=== PATIENT | female | born 1990 | race Caucasian/White ===

== ENCOUNTER 2017-11-18 20:09 | Inpatient (IN) | payer OTHER ==
[2017-11-18 20:53] LABS: ADD UMIC YES; UR ASCORBIC ACID 40 mg/dL (NEGATIVE); UR BACTERIA MANY /HPF (NONE SEEN); UR BILIRUBIN (Dip) NEGATIVE (NEGATIVE); UR BLOOD (Dip) 3+ mg/dL (NEGATIVE); UR CLARITY CLOUDY (CLEAR); UR COLOR AMBER (YELLOW); UR GLUCOSE (Dip) NEGATIVE (NEGATIVE); UR KETONES (Dip) NEGATIVE (NEGATIVE); UR LEUKOCYTE ESTERASE (Dip) 2+ Leu/ul (NEGATIVE); UR MUCUS MANY /HPF (NONE SEEN); UR NITRITE (Dip) POSITIVE (NEGATIVE); UR RBC 4 /HPF (0-5); UR SPECIFIC GRAVITY (Dip) 1.027 (1.003-1.030); UR SQUAMOUS EPITHELIAL CELL MANY /HPF (FEW); UR TOTAL PROTEIN (Dip) 1+ mg/dl (NEGATIVE); UR UROBILINOGEN (Dip) 2+ mg/dL (NEGATIVE); UR WBC 39 /HPF (0-5)
[2017-11-18] MEDS ORDERED: CEFTRIAXONE 1 GM INJ IM (22:00)
[2017-11-18 23:20] LABS: ADD MAN DIFF? NO
[2017-11-18] MEDS: SOD CHLORIDE 0.9% 1,000 ML IV (23:28)
[2017-11-18] MEDS: CEFTRIAXONE 1 GM/50 ML (PMX) 50 ML IVPB (23:29)
[2017-11-18 23:30] LABS: WHITE BLOOD COUNT 11.2 10^3/ul (4.8-10.8)
[2017-11-18 23:30] LABS: BASOPHILS % 0.4 % (0.0-2.0); EOSINOPHILS % 0.2 % (0.0-7.0); HEMATOCRIT 38.1 % (37.0-47.0); HEMOGLOBIN 12.5 g/dl (12.0-16.0); LYMPHOCYTES # 2.4 10^3/ul (0.8-2.9); LYMPHOCYTES % 21.6 % (15.0-51.0); MEAN CORPUSCULAR HGB CONC 32.8 g/dl (32.0-37.0); MEAN CORPUSCULAR VOLUME 85.2 fl (82.0-101.0); MEAN PLATELET VOLUME 10.3 fl (7.4-10.4); MONOCYTE # 0.7 10^3/ul (0.3-0.9); MONOCYTES % 6.6 % (0.0-11.0); NEUTROPHIL # 7.9 10^3/ul (1.6-7.5); NEUTROPHILS % 70.7 % (39.0-77.0); PLATELET COUNT 322 10^3/UL (140-415); RED BLOOD COUNT 4.47 10^6/ul (4.20-5.40); RED CELL DISTRIBUTION WIDTH 14.4 % (11.5-14.5)
[2017-11-18 23:49] LABS: PROTIME 12.2 Sec (11.9-14.9)
[2017-11-18 23:50] LABS: PARTIAL THROMBOPLASTIN TIME 33.1 Sec (23.0-35.0)
[2017-11-19 00:18] LABS: HEPATITIS B SURFACE ANTIGEN NEGATIVE (NEGATIVE)
[2017-11-19] MEDS: HYDROCODONE/APAP (7.5/325) TAB PO (02:46)
[2017-11-19] MEDS ORDERED: CEFAZOLIN 2 GM/50 ML (PMX) 50 ML IVPB (05:42)
[2017-11-19] MEDS ORDERED: CITRIC ACID/NA CITRATE 30 ML CUP (05:42)
[2017-11-19] MEDS ORDERED: ONDANSETRON 4 MG INJ (05:43)
[2017-11-19] MEDS ORDERED: morphine SULFATE/PF (10 MG/10 ML) INJ (05:44)
[2017-11-19] MEDS ORDERED: METOCLOPRAMIDE 10 MG INJ (05:44)
[2017-11-19] MEDS ORDERED: OXYTOCIN 10 UNIT INJ (05:44)
[2017-11-19] MEDS ORDERED: PHENYLephrine (100 MCG/ML) 5ML SYG (05:44)
[2017-11-19] MEDS ORDERED: FENTAnyl 50 MCG/ML VIAL (05:44)
[2017-11-19] MEDS ORDERED: BUPIVACAINE 0.75%/DEXT (SPINAL) 2 ML INJ (05:44)
[2017-11-19] MEDS ORDERED: CEFAZOLIN 2 GM/50 ML (PMX) 50 ML IV (06:00)
[2017-11-19] MEDS: CITRIC ACID/NA CITRATE 30 ML CUP PO (06:00)
[2017-11-19] MEDS ORDERED: HYDROmorphONE 1 MG/5 ML IV SYRINGE IV ×3 (08:00)
[2017-11-19] MEDS ORDERED: DIPHENHYDRAMINE 50 MG INJ IV ×2 (08:00)
[2017-11-19] MEDS ORDERED: LABETALOL HCL 20MG INJ IV (08:00)
[2017-11-19] MEDS ORDERED: ALBUTEROL 0.083% (NEB) 2.5 MG/3 ML AMP HHN (08:00)
[2017-11-19] MEDS ORDERED: morphine 2 MG INJ IV ×2 (08:00)
[2017-11-19] MEDS ORDERED: MEPERIDINE 25 MG INJ IV (08:00)
[2017-11-19] MEDS ORDERED: MIDAZOLAM 1 MG/ML 2 ML INJ IV (08:00)
[2017-11-19] MEDS ORDERED: NALOXONE (0.4 MG/ML) INJ IV (08:00)
[2017-11-19] MEDS ORDERED: IPRATROPIUM (NEB) 0.5 MG/2.5 ML AMP HHN (08:00)
[2017-11-19] MEDS ORDERED: FENTAnyl 50 MCG/ML VIAL IV ×3 (08:00)
[2017-11-19] MEDS ORDERED: OXYCODONE/ACETAMINOPHEN (5/325) TAB PO ×3 (08:00→08:30)
[2017-11-19] MEDS ORDERED: EPHEDrine SULFATE 50 MG/5 ML SYG IV (08:00)
[2017-11-19] MEDS ORDERED: ONDANSETRON 4 MG INJ IV (08:00)
[2017-11-19] MEDS ORDERED: TRIMETHOBENZAMIDE 100 MG/ML VIAL IM ×2 (08:00)
[2017-11-19] MEDS ORDERED: KETOROLAC 30 MG INJ IV (08:00)
[2017-11-19] MEDS ORDERED: OXYTOCIN 30 UNITS/LR 500 ML IV ×2 (08:00→08:30)
[2017-11-19] MEDS ORDERED: NALBUPHINE HCL (10 MG/1 ML) INJ IV (08:00)
[2017-11-19] MEDS ORDERED: hydrALAzine 20 MG INJ IV (08:00)
[2017-11-19] MEDS: DEXTROSE 5%-LR 1,000 ML IV ×2 (08:04→16:04)
[2017-11-19] MEDS: OXYTOCIN 30 UNITS/LR 500 ML IV (08:04)
[2017-11-19] MEDS ORDERED: MISOPROSTOL 200 MCG TAB PR (08:30)
[2017-11-19] MEDS ORDERED: CARBOPROST 250 MCG INJ IM (08:30)
[2017-11-19] MEDS ORDERED: LANOLIN 7 GM TUBE TOP (08:30)
[2017-11-19] MEDS: OXYCODONE/ACETAMINOPHEN (5/325) TAB PO ×3 (08:30→23:47)
[2017-11-19] MEDS ORDERED: METHYLERGONOVINE 0.2 MG TAB PO (08:30)
[2017-11-19] MEDS ORDERED: METHYLERGONOVINE 0.2 MG INJ IM (08:30)
[2017-11-19] MEDS: OXYTOCIN 30 UNITS/LR 500 ML IVPB (08:37)
[2017-11-19] MEDS: SENNA/DOCUSATE NA (8.6MG/50MG) TAB PO ×2 (09:00→21:35)
[2017-11-19] MEDS: FERROUS SULFATE (EC) 325 MG TAB PO (09:00)
[2017-11-19] MEDS ORDERED: PRENATAL VITAMIN PO (09:00)
[2017-11-19] MEDS: ONDANSETRON 4 MG INJ IV ×2 (11:19→11:20)
[2017-11-19] MEDS ORDERED: IBUPROFEN 800 MG TAB PO (14:00)
[2017-11-19] MEDS: LACTATED RINGER'S 1,000 ML IV ×2 (15:27→21:36)
[2017-11-19 15:53] LABS: RAPID PLASMA REAGIN NONREACTIVE (NR)
[2017-11-19] MEDS: METOCLOPRAMIDE 10 MG INJ IV ×2 (17:58→23:47)
[2017-11-19] MEDS: CEFTRIAXONE 1 GM/50 ML (PMX) 50 ML IVPB (21:35)
[2017-11-20] MEDS: DEXTROSE 5%-LR 1,000 ML IV ×2 (00:04→08:04)
[2017-11-20] MEDS: METOCLOPRAMIDE 10 MG INJ IV (05:32)
[2017-11-20] MEDS ORDERED: HYDROCODONE/APAP (5/325) TAB NGT (08:00)
[2017-11-20 08:55] LABS: ADD MAN DIFF? NO
[2017-11-20 08:59] LABS: WHITE BLOOD COUNT 14.9 10^3/ul (4.8-10.8)
[2017-11-20 08:59] LABS: BASOPHILS % 0.2 % (0.0-2.0); EOSINOPHILS % 0.1 % (0.0-7.0); HEMATOCRIT 34.3 % (37.0-47.0); HEMOGLOBIN 11.1 g/dl (12.0-16.0); LYMPHOCYTES # 1.8 10^3/ul (0.8-2.9); LYMPHOCYTES % 11.7 % (15.0-51.0); MEAN CORPUSCULAR HEMOGLOBIN 28.1 pg (29.0-33.0); MEAN CORPUSCULAR HGB CONC 32.4 g/dl (32.0-37.0); MEAN CORPUSCULAR VOLUME 86.8 fl (82.0-101.0); MEAN PLATELET VOLUME 9.8 fl (7.4-10.4); MONOCYTE # 0.8 10^3/ul (0.3-0.9); MONOCYTES % 5.2 % (0.0-11.0); NEUTROPHIL # 12.2 10^3/ul (1.6-7.5); NEUTROPHILS % 81.9 % (39.0-77.0); PLATELET COUNT 274 10^3/UL (140-415); RED BLOOD COUNT 3.95 10^6/ul (4.20-5.40); RED CELL DISTRIBUTION WIDTH 14.6 % (11.5-14.5)
[2017-11-20] MEDS: NITROFURANTOIN (SR) 100 MG CAP PO ×2 (09:31→21:26)
[2017-11-20] MEDS: FERROUS SULFATE (EC) 325 MG TAB PO (09:31)
[2017-11-20] MEDS: SENNA/DOCUSATE NA (8.6MG/50MG) TAB PO ×2 (09:32→21:26)
[2017-11-20] MEDS: HYDROCODONE/APAP (5/325) TAB PO ×3 (09:40→22:00)
[2017-11-20] MEDS ORDERED: HYDROCODONE/APAP (5/325) TAB PO (12:00)
[2017-11-20] MEDS: IBUPROFEN 800 MG TAB PO ×2 (14:02→21:26)
[2017-11-20 17:40] LABS: ADD UMIC YES; UR ASCORBIC ACID NEGATIVE (NEGATIVE); UR BACTERIA FEW /HPF (NONE SEEN); UR BILIRUBIN (Dip) NEGATIVE (NEGATIVE); UR BLOOD (Dip) 3+ mg/dL (NEGATIVE); UR CLARITY CLEAR (CLEAR); UR COLOR YELLOW (YELLOW); UR GLUCOSE (Dip) NEGATIVE (NEGATIVE); UR KETONES (Dip) NEGATIVE (NEGATIVE); UR LEUKOCYTE ESTERASE (Dip) 2+ Leu/ul (NEGATIVE); UR MUCUS FEW /HPF (NONE SEEN); UR NITRITE (Dip) NEGATIVE (NEGATIVE); UR RBC 49 /HPF (0-5); UR SPECIFIC GRAVITY (Dip) 1.005 (1.003-1.030); UR SQUAMOUS EPITHELIAL CELL FEW /HPF (FEW); UR TOTAL PROTEIN (Dip) NEGATIVE (NEGATIVE); UR UROBILINOGEN (Dip) NEGATIVE (NEGATIVE); UR WBC 21 /HPF (0-5)
[2017-11-21] MEDS: IBUPROFEN 800 MG TAB PO ×3 (05:13→21:11)
[2017-11-21] MEDS: HYDROCODONE/APAP (5/325) TAB PO ×3 (05:13→21:11)
[2017-11-21] MEDS: NITROFURANTOIN (SR) 100 MG CAP PO ×2 (10:06→21:11)
[2017-11-21] MEDS: SENNA/DOCUSATE NA (8.6MG/50MG) TAB PO ×2 (10:07→21:11)
[2017-11-21] MEDS: FERROUS SULFATE (EC) 325 MG TAB PO (10:07)
[2017-11-21] MEDS: DIPHTH/TET/ACEL PERTUSS (ADULT) 0.5 ML VIAL IM* (17:39)
[2017-11-22] MEDS: HYDROCODONE/APAP (5/325) TAB PO ×2 (05:54→13:18)
[2017-11-22] MEDS: IBUPROFEN 800 MG TAB PO ×2 (05:54→13:18)
[2017-11-22] MEDS ORDERED: DIPHTH/TET/ACEL PERTUSS (ADULT) 0.5 ML VIAL IM* (09:00)
[2017-11-22] MEDS: MEASLES,MUMPS,RUBELLA VACCINE INJ SC* (09:00)
[2017-11-22] MEDS: FERROUS SULFATE (EC) 325 MG TAB PO (10:06)
[2017-11-22] MEDS: NITROFURANTOIN (SR) 100 MG CAP PO (10:06)
[2017-11-22] MEDS: SENNA/DOCUSATE NA (8.6MG/50MG) TAB PO (10:06)
== END 2017-11-22 18:10 | disposition home or self-care (01) | DRG 787 ==
LOC: OBT 20:09 → L-D 20:11 → OBT 22:19 → L-D 22:19 → PP1 11-19 10:25
PROC: 10D00Z1 Extraction of Products of Conception, Low, Open Approach (ICD-10-PCS; principal; 2017-11-19 06:00)
PROC: 3E033VJ Introduction of Other Hormone into Peripheral Vein, Percutaneous Approach (ICD-10-PCS; 2017-11-19 06:00)
DX: O75.3 Other infection during labor (principal); O41.03X2 Oligohydramnios, third trimester, fetus 2; B96.20 Unspecified Escherichia coli [E. coli] as the cause of diseases classified elsewhere; P03.89 Newborn affected by other specified complications of labor and delivery; O30.003 Twin pregnancy, unspecified number of placenta and unspecified number of amniotic sacs, third trimester; Z3A.37 37 weeks gestation of pregnancy; Z37.2 Twins, both liveborn
CPT/HCPCS: 76775; 76815; 81001; 85025; 85610; 85730; 86592; 86850; 86900; 86901; 87086; 87340; 88307; 90686; 90715; 99464